=== PATIENT | female | born 1980 | race Hispanic/Latino ===

== ENCOUNTER 2019-03-09 08:46 | Emergency (ER) | payer BC ==
[2019-03-09] MEDS ORDERED: NA CHLORIDE 0.9% 1,000 ML ONE (10:03)
[2019-03-09 10:30] LABS: Absolute Lymphocytes (CBC) 0.4 K/uL (0.7-4.9); Basophils % 0.9 % (0-1.3); Eosinophils % 2.4 % (0-4.4); Hematocrit 42.1 % (36.0-45.0); Lymphocytes % 10.4 % (15.3-44.8); MPV 7.9 fL (7.6-11.3); Monocytes % 2.9 % (3.3-12.3); RBC Red Blood Cell Count 4.78 M/uL (3.86-4.86)
[2019-03-09 10:40] LABS: Albumin 3.4 g/dL (3.4-5.0); Bilirubin Direct 0.1 mg/dL (0-0.2); Bilirubin Total 0.4 mg/dL (0.2-1.0); Potassium 4.2 mmol/L (3.5-5.1); Protein, Total 7.1 g/dL (6.4-8.2)
[2019-03-09 11:34] LABS: Urine Blood NEGATIVE (NEG); Urine Glucose NEGATIVE (NEG); Urine Protein NEGATIVE (NEG); Urine Specific Gravity 1.005 (1.005-1.030)
--- NOTE | 2019-03-09 12:48 | RAD REPORT ---
EXAM DESCRIPTION: CTAbdomen Pelvis W Contrast - 03/09/2019 12:38 pm CLINICAL HISTORY: Abdominal pain. LLQ/Flank pain COMPARISON: Abdomen Pelvis W Contrast dated 10/19/2017; CT ABD PELVIS W CONTRAST dated 10/27/2011 TECHNIQUE: Biphasic CT imaging of the abdomen and pelvis was performed with 100 ml non-ionic IV cont rast. All CT scans are performed using dose optimization technique as appropriate and may include automated exposure control or mA/KV adjustment according to patient size. FINDINGS: The lung bases are clear. Cholecystectomy clips. The liver, spleen, pancreas, adrenal glands and left kidney are within normal limits. 6-7 mm stone is present in the right kidney without hydronephrosis. No bowel obstruction, free air, free fluid or abscess. The appendix is normal. No evidence of signi ficant lymphadenopathy. No suspicious bony findings. IMPRESSION: Nonobstructive 6-7 mm right renal calculus.
--- NOTE | 2019-03-09 13:46 | ER ---
Nurse's Notes [facility] Name: Funmilayo Uribe Age: 38 yrs Sex: Female : 1980 Arrival Date: 03/09/2019 Time: 08:50 Bed 13 Private MD: Unknown, Unknown Diagnosis: Abdominal and pelvic pain;Malaise and fatigue Presentation: 03/09 09:03 Presenting complaint: Patient states: Has had fever, chills, and nausea x 2 days. rb1 09:03 Method Of Arrival: Ambulatory [facility] 09:03 Transition of care: patient was not received from another setting of care. Onset of rb1 symptoms was March 07, 2019. Risk Assessment: Do you want to hurt yourself or someone else?. Initial Sepsis Screen: Does the patient meet any 2 criteria? No. Patient's initial sepsis screen is negative. Does the patient have a suspected source of infection? No. Patient's initial sepsis screen is negative. Care prior to arrival: None. 09:03 Acuity: CHRISTIANNE 3 rb1 Triage Assessment: 09:03 General: Appears in no apparent distress. comfortable, Behavior is calm, cooperative, rb1 Reports chills for fever for 2-3 days. General: Reports Fever 99.3. Pain: Complains of pain in left upper quadrant and left lower quadrant Pain currently is 8 out of 10 on a pain scale. Neuro: Level of Consciousness is awake, alert, obeys commands, Oriented to person, place, time, situation. Cardiovascular: Capillary refill < 3 seconds is brisk in bilateral fingers. Respiratory: Airway is patent Respiratory effort is even, unlabored, Respiratory pattern is regular, symmetrical. GI: Abdomen is non-distended, Reports nausea, since last bowel movement two days ago. : No signs and/or symptoms were reported regarding the genitourinary system. Derm: Skin is pink, warm \T\ dry. 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 - Social history:: Smoking status: Patient/guardian denies using tobacco. - Ebola Screening: : Patient negative for fever greater than or equal to 101.5 degrees Fahrenheit, and additional compatible Ebola Virus Disease symptoms. Screenin:03 Abuse screen: Denies threats or abuse. Nutritional screening: No deficits noted. rb1 Tuberculosis screening: No symptoms or risk factors identified. Fall Risk None identified. Assessment: 09:03 General: See triage assessment. rb1 10:00 Reassessment: Patient appears in no apparent distress at this time. No changes from rb1 previously documented assessment. 11:00 Reassessment: Patient appears in no apparent distress at this time. Patient and/or rb1 family updated on plan of care and expected duration. Pain level reassessed. Patient is alert, oriented x 3, equal unlabored respirations, skin warm/dry/pink. 12:00 Reassessment: Patient appears in no apparent distress at this time. No changes from rb1 previously documented assessment. Family at bedside. 12:30 Reassessment: Pt. went to CT. rb1 13:00 Reassessment: Patient appears in no apparent distress at this time. Patient and/or rb1 family updated on plan of care and expected duration. Pain level reassessed. Patient is alert, oriented x 3, equal unlabored respirations, skin warm/dry/pink. 14:00 Reassessment: Patient appears in no apparent distress at this time. No changes from rb1 previously documented assessment. Vital Signs: 09:03 BP 102 / 78; Pulse 99; Resp 17; Temp 97.5(TE); Pulse Ox 97% on R/A; Weight 90.72 kg rb1 (R); Height 4 ft. 11 in. (149.86 cm) (R); Pain 8/10; 10:00 BP 102 / 73; Pulse 97; Resp 17; Temp 97.9(TE); Pulse Ox 98% on R/A; Pain 7/10; rb1 11:00 BP 103 / 75; Pulse 89; Resp 17; Temp 98.1(O); Pulse Ox 99% on R/A; Pain 7/10; rb1 12:00 BP 100 / 78; Pulse 90; Resp 16; Temp 98.0(O); Pulse Ox 96% on R/A; Pain 7/10; rb1 13:00 BP 115 / 76; Pulse 68; Resp 17; Temp 98.1(O); Pulse Ox 99% on R/A; Pain 6/10; rb1 14:00 BP 109 / 83; Pulse 70; Resp 16; Temp 98.2(O); Pulse Ox 99% on R/A; Pain 5/10; rb1 09:03 Body Mass Index 40.39 (90.72 kg, 149.86 cm) rb1 ED Course: 08:50 Patient arrived in ED. ag5 08:51 Unknown, Unknown is Private Physician. ag5 08:59 Zak Candelario MD is Attending Physician. kdr 09:03 Keila Amin, RN is Primary Nurse. rb1 09:03 Arm band placed on right wrist. rb1 09:03 Patient has correct armband on for positive identification. Bed in low position. Call rb1 light in reach. Side rails up X 1. Pulse ox on. NIBP on. Warm blanket given. 09:10 Triage completed. rb1 10:05 Inserted saline lock: 22 gauge in right antecubital area, using aseptic technique. rb1 Blood collected. 11:01 Radiology exam delayed due to test not completed at this time. jg6 12:37 CT Abd/Pelvis - IV Contrast Only In Process Unspecified. EDMS 14:22 No provider procedures requiring assistance completed. IV discontinued, intact, rb1 bleeding controlled, No redness/swelling at site. Pressure dressing applied. Administered Medications: 10:05 Drug: NS 0.9% 1000 ml Route: IV; Rate: 1 bolus; Site: right antecubital; rb1 11:10 Follow up: IV Status: Completed infusion rb1 Outcome: 13:46 Discharge ordered by . kdr 14:22 Discharged to home ambulatory, with family. rb1 14:22 Condition: stable 14:22 Discharge instructions given to patient, Instructed on discharge instructions, follow up and referral plans. medication usage, Demonstrated understanding of instructions, follow-up care, medications, Prescriptions given X x 5 14:23 Patient left the ED. rb1 Signatures: Dispatcher [employer] EDSC Zak Candelario MD MD kdr Keila Amin, RN RN rb1 Debbie Jordan jg6 Don Munson ag5
--- NOTE | 2019-03-09 13:47 | EDPHYS ---
Physician Documentation [facility] Name: Funmilayo Uribe Age: 38 yrs Sex: Female : 1980 Arrival Date: 03/09/2019 Time: 08:50 Bed 13 Private MD: Unknown, Unknown ED Physician Zak Candelario HPI: 03/09 09:26 This 38 yrs old Female presents to ER via Ambulatory with complaints of kdr Nausea/Vomiting, Headache, Chills. 09:27 The patient has been feeling poorly for two days. Generally achy with n/v, no BM for kdr two days and mild frontal ROLDAN. She has also felt feverish but has not measured a temperature. She has not had this before. Her pain is in LLQ and left lower flank. There is no CVA tenderness and no pain with urination. She does not appear toxic and only very mildly ill.. Severity of symptoms: At their worst the symptoms were moderate in the emergency department the symptoms have improved mildly. The patient has not experienced similar symptoms in the past. The patient has not recently seen a physician. 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 - Social history:: Smoking status: Patient/guardian denies using tobacco. - Ebola Screening: : Patient negative for fever greater than or equal to 101.5 degrees Fahrenheit, and additional compatible Ebola Virus Disease symptoms. ROS: 09:27 Constitutional: Negative for weight loss - she has had fever and chills Eyes: Negative kdr for injury, pain, redness, and discharge, ENT: Negative for injury, pain, and discharge, Neck: Negative for injury, pain, and swelling, Cardiovascular: Negative for chest pain, palpitations, and edema, Respiratory: Negative for shortness of breath, cough, wheezing, and pleuritic chest pain, Back: Negative for injury and pain, : Negative for injury, bleeding, discharge, and swelling, MS/Extremity: Negative for injury and deformity, Skin: Negative for injury, rash, and discoloration, Neuro: Negative for headache, weakness, numbness, tingling, and seizure activity. Psych: Negative for depression, anxiety, suicide ideation, homicidal ideation, and hallucinations, Allergy/Immunology: Negative for hives, rash, and allergies, Endocrine: Negative for neck swelling, polydipsia, polyuria, polyphagia, and marked weight changes, Hematologic/Lymphatic: Negative for swollen nodes, abnormal bleeding, and unusual bruising. 09:27 Abdomen/GI: Positive for abdominal pain, nausea and vomiting, constipation, Negative for abdominal distension, anorexia, dysphagia, hematemesis, black/tarry stool, rectal pain, rectal bleeding, bowel incontinence. Exam: 09:27 Constitutional: This is a well developed, well nourished patient who is awake, alert, kdr and in no acute distress. Head/Face: Normocephalic, atraumatic. Eyes: Pupils equal round and reactive to light, extra-ocular motions intact. Lids and lashes normal. Conjunctiva and sclera are non-icteric and not injected. Cornea within normal limits. Periorbital areas with no swelling, redness, or edema. Neck: Trachea midline, no thyromegaly or masses palpated, and no cervical lymphadenopathy. Supple, full range of motion without nuchal rigidity, or vertebral point tenderness. No Meningismus. Chest/axilla: Normal chest wall appearance and motion. Nontender with no deformity. No lesions are appreciated. Cardiovascular: Regular rate and rhythm with a normal S1 and S2. No gallops, murmurs, or rubs. Normal PMI, no JVD. No pulse deficits. Respiratory: Lungs have equal breath sounds bilaterally, clear to auscultation and percussion. No rales, rhonchi or wheezes noted. No increased work of breathing, no retractions or nasal flaring. Back: No spinal tenderness. No costovertebral tenderness. Full range of motion. Skin: Warm, dry with normal turgor. Normal color with no rashes, no lesions, and no evidence of cellulitis. MS/ Extremity: Pulses equal, no cyanosis. Neurovascular intact. Full, normal range of motion. Neuro: Awake and alert, GCS 15, oriented to person, place, time, and situation. Cranial nerves II-XII grossly intact. Motor strength 5/5 in all extremities. Sensory grossly intact. Cerebellar exam normal. Normal gait. Psych: Awake, alert, with orientation to person, place and time. Behavior, mood, and affect are within normal limits. 09:27 Abdomen/GI: Inspection: abdomen appears normal, Bowel sounds: normal, Palpation: soft, mild abdominal tenderness, in the anterior aspect of left lateral abdomen and left lower quadrant. Vital Signs: 09:03 BP 102 / 78; Pulse 99; Resp 17; Temp 97.5(TE); Pulse Ox 97% on R/A; Weight 90.72 kg rb1 (R); Height 4 ft. 11 in. (149.86 cm) (R); Pain 8/10; 10:00 BP 102 / 73; Pulse 97; Resp 17; Temp 97.9(TE); Pulse Ox 98% on R/A; Pain 7/10; rb1 11:00 BP 103 / 75; Pulse 89; Resp 17; Temp 98.1(O); Pulse Ox 99% on R/A; Pain 7/10; rb1 12:00 BP 100 / 78; Pulse 90; Resp 16; Temp 98.0(O); Pulse Ox 96% on R/A; Pain 7/10; rb1 13:00 BP 115 / 76; Pulse 68; Resp 17; Temp 98.1(O); Pulse Ox 99% on R/A; Pain 6/10; rb1 14:00 BP 109 / 83; Pulse 70; Resp 16; Temp 98.2(O); Pulse Ox 99% on R/A; Pain 5/10; rb1 09:03 Body Mass Index 40.39 (90.72 kg, 149.86 cm) rb1 MDM: 09:27 Data reviewed: vital signs, nurses notes, lab test result(s), radiologic studies. kdr 13:46 Patient medically screened. [facility] 03/09 09:25 Order name: Basic Metabolic Panel; Complete Time: 10:52 [facility] 03/09 09:25 Order name: CBC with Diff; Complete Time: 10:52 [facility] 03/09 09:25 Order name: Creatinine for Radiology; Complete Time: 10:52 [facility] 03/09 09:25 Order name: Hepatic Function; Complete Time: 10:52 [facility] 03/09 09:25 Order name: Lipase; Complete Time: 10:52 [facility] 03/09 10:59 Order name: Test, Serum; Complete Time: 12:24 [facility] 03/09 09:25 Order name: IV Saline Lock; Complete Time: 10:53 [facility] 03/09 09:25 Order name: Labs collected and sent; Complete Time: 10:53 [facility] 03/09 09:25 Order name: CT Abd/Pelvis - IV Contrast Only; Complete Time: 13:38 [facility] 03/09 09:25 Order name: Urine Test (obtain specimen); Complete Time: 11:14 [facility] 03/09 09:25 Order name: Urine Dipstick-Ancillary (obtain specimen); Complete Time: 11:13 [facility] 03/09 11:02 Order name: Urine Dipstick--Ancillary (enter results); Complete Time: 12:24 eb Administered Medications: 10:05 Drug: NS 0.9% 1000 ml Route: IV; Rate: 1 bolus; Site: right antecubital; rb1 11:10 Follow up: IV Status: Completed infusion rb1 Disposition: 03/09/19 13:46 Discharged to Home. Impression: Abdominal and pelvic pain, Malaise and fatigue. - Condition is Stable. - Discharge Instructions: Abdominal Pain, Adult, [id number]. - Prescriptions for Bentyl 20 mg Oral Tablet - take 1 tablet by ORAL route every 6 hours As needed; 20 tablet. Pepcid 20 mg Oral Tablet - take 1 tablet by ORAL route every 12 hours for 5 days; 10 tablet. Zofran 4 mg Oral Tablet - take 1 tablet by ORAL route every 12 hours As needed; 16 tablet. Tramadol 50 mg Oral Tablet - take 1 tablet by ORAL route every 8 hours as needed; 12 tablet. Miralax 17 gram/dose Oral - take 1 packet by ORAL route once daily As needed dilute powder in 8 ounces of water or juice; 1 box. - Medication Reconciliation Form, Thank You Letter, Prescription Opioid Use form. - Follow up: Private Physician; When: 2 - 3 days; Reason: If symptoms return, Further diagnostic work-up, Recheck today's complaints, Continuance of care, Re-evaluation by your physician. - Problem is new. - Symptoms have improved. Signatures: Dispatcher [employer] EDMS Zak Candelario MD MD kdr Barber, Rebecca RN RN rb1 Corrections: (The following items were deleted from the chart) 14:23 13:46 03/09/2019 13:46 Discharged to Home. Impression: Abdominal and pelvic pain; rb1 Malaise and fatigue. Condition is Stable. Forms are Medication Reconciliation Form, Thank You Letter, Antibiotic Education, Prescription Opioid Use. Follow up: Private Physician; When: 2 - 3 days; Reason: If symptoms return, Further diagnostic work-up, Recheck today's complaints, Continuance of care, Re-evaluation by your physician. Problem is new. Symptoms have improved. kdr
[2019-03-09 14:53] VITALS: O2SAT 99
[2019-03-09 14:55] VITALS: BP 109/83; TEMP 98.2
== END 2019-03-09 14:23 | disposition home or self-care (01) ==
LOC: ER 08:46
DX: R53.81 Other malaise (principal); R53.83 Other fatigue; Z88.5 Allergy status to narcotic agent
CPT/HCPCS: 36415; 74177; 80048; 80076; 81003; 83690; 84703; 85025; 96360; 99284; J7030; Q9967